=== PATIENT | male | born 1980 ===

== ENCOUNTER 2017-04-27 20:34 | Emergency (ER) | payer OTHER ==
[2017-04-27 20:56] VITALS: BP 118/79; PULSE 83; RESP 20; TEMP 97.9; O2SAT 99
--- NOTE | 2017-04-27 21:33 | C.PDOC ---
History Of Present Illness 37 yo male come in for evaluation of Right middle finger painful swelling around nail bed gradually developed for past few weeks. Pt admits, " was cutting nail prior to finger pain and swelling". Pt denies fever, chills, denies known trauma or injury, denies weakness, sensory or vascular deficits to Right hand. Ambulate to ED for evaluation, not in any apparent distress. Time Seen by Provider: 04/27/17 20:51 Chief Complaint (Nursing): Finger,Hand,&Wrist History Per: Patient Onset/Duration Of Symptoms: Gradual Current Symptoms Are (Timing): Still Present Past Medical History Reviewed: Historical Data, Nursing Documentation, Vital Signs Vital Signs: Last Vital Signs Temp 97.9 F 04/27/17 20:47 Pulse 83 04/27/17 20:47 Resp 20 04/27/17 20:47 BP 118/79 04/27/17 20:47 Pulse Ox 99 04/27/17 20:47 - Medical History PMH: No Chronic Diseases Family History: States: No Known Family Hx - Social History Hx Alcohol Use: No Hx Substance Use: No - Immunization History Hx Tetanus Toxoid Vaccination: No Hx Influenza Vaccination: Yes (07/2016) Hx Pneumococcal Vaccination: No Review Of Systems Except As Marked, All Systems Reviewed And Found Negative. Constitutional: Negative for: Fever, Chills ENT: Negative for: Throat Pain Musculoskeletal: Positive for: Hand Pain Skin: Positive for: Lesions Neurological: Negative for: Weakness, Numbness Physical Exam - Physical Exam Appears: Well, Non-toxic, No Acute Distress Skin: Normal Color, Warm Extremity: Normal ROM (Right hand), Tenderness (tenderness along medial aspect nail bed of Right middle finger with (+) flactulance, (+) erythema. NO deformity , FAROM, no neurovascular deficits.), No Deformity Neurological/Psych: Oriented x3, Normal Speech, Normal Motor, Normal Sensation, Normal Reflexes ED Course And Treatment O2 Sat by Pulse Oximetry: 99 Pulse Ox Interpretation: Normal Progress Note: On re-evaluation, pt is afebrile, hemodynamicaly stable. Right hand: exam c/w paronychia medial aspect nail over middle finger. FAROM, no neurovascular deficits, no proximal streaking. pt s/p i&D, tetanus, oral abx given. pt advised on wound care. ref. to F/u with PMD in 2 days for re-eavl. return ifany worsening or new changes. - Incision & Drainage Of Abscess Anesthesia: Lidocaine 2% (digital block ) Procedure: Incised W/Scalpel Blade#: (11), Drained Pus, Irrigated Cavity W/ Saline Disposition Counseled Patient/Family Regarding: Diagnosis, Need For Followup, Rx Given - Disposition Referrals: [facility] [Outside] Disposition: HOME/ ROUTINE Disposition Time: 21:40 Condition: STABLE Additional Instructions: Warm salty water finger soaks 2 times daily for 5 minutes Take medication as prescribed Follow up with PMD in 2 days for re-evaluation. Return to ED if any worsening or new changes. Prescriptions: Clindamycin [Cleocin] 300 mg PO Q6 #28 cap Instructions: Paronychia (ED) - Clinical Impression Clinical Impression: Paronychia
== END 2017-04-27 21:54 | disposition home or self-care (01) ==
LOC: C.ER 20:34
DX: L03.011 Cellulitis of right finger (principal)